=== PATIENT | male | born 1980 | race African-American/Black ===

== ENCOUNTER 2021-06-22 03:41 | Emergency (ER) | payer OTHER ==
[~2021-06-22] VITALS: Ht 170.2 cm; Wt 77.0 kg
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
[2021-06-22] MEDS ORDERED: CYCL10TA19 PO (04:49)
[2021-06-22] MEDS ORDERED: TRAM-48 PO (04:49)
[2021-06-22 05:07] VITALS: BP 111/57
== END 2021-06-22 05:16 | disposition home or self-care (01) ==
LOC: ER 03:41
DX: R10.84 Generalized abdominal pain (principal); R10.11 Right upper quadrant pain; R10.32 Left lower quadrant pain; G89.11 Acute pain due to trauma; V49.49XA Driver injured in collision with other motor vehicles in traffic accident, initial encounter; Y93.89 Activity, other specified; Y92.488 Other paved roadways as the place of occurrence of the external cause; Y99.8 Other external cause status
CPT/HCPCS: 99283